=== PATIENT | female | born 1980 | race Hispanic/Latino ===

== ENCOUNTER → 2018-07-29 | Outpatient (CLI) | payer OTHER ==
--- NOTE | 2018-07-30 08:29 | US ---
EXAM DESCRIPTION: Breast,Bilateral: Ultrasound CLINICAL HISTORY: 37 yearsFemaleBREAST LUMP COMPARISON: Bilateral diagnostic digital breast tomosynthesis on the same visit. TECHNIQUE: Transcutaneous scanning of the bilateral breasts utilizing anders-scale and Doppler modes. Scanning performed by the clinical medical transcriptionist and Dr. Roberts. FINDINGS: Scanning at the right breast upper outer quadrant. Breast tissue is predominantly fibroglandular with heterogeneous fatty echotexture. No dominant solid mass or distinct cyst. No parenchymal edema or large calcifications. No overlying skin changes. Normal vascularity. Scanning of the left breast where patient feels a lump at the 2:00 position 5 cm from the nipple. Skin marker at this location. Predominantly fibroglandular tissues with minimal fatty echotexture. Close to the chest wall. No dominant solid mass or distinct cyst. No parenchymal edema or large calcifications. No overlying skin changes. Normal vascularity. Bilateral negative findings. IMPRESSION: 1. Bi-Rads Category 1: Negative. 2. Please refer to bilateral diagnostic digital breast tomosynthesis examination and report on this visit. The FINDINGS and the FOLLOW-UP plan were reviewed in person with the patient after the examination. Written communication explaining the IMPRESSION and FOLLOW-UP will be mailed to the patient and referring care provider. Electronically signed by: Nicholas Roberts MD 07/30/2018 8:26 AM [employer] [facility]
--- NOTE | 2018-07-30 20:40 | MAM ---
EXAM DESCRIPTION: 3D Diagnostic, Bilateral: Digital Mammography CLINICAL HISTORY: 37 yearsFemaleBILATERAL BREAST NODULES PAIN . Palpable nodule upper outer quadrant left breast. No personal or family history of breast cancer. Childbirth. Premenopausal. No HRT. Lifetime risk of developing breast cancer (Tyrer-Cuzick model) percentage is 8.0. COMPARISON: Baseline study at this facility. No prior reports available.. TECHNIQUE: Bilateral LM, MLO, and CC projection full-field images, digital mammographic tomosynthesis technique. Bilateral 2-D digital full-field MLO images. CAD not utilized. Skin marker placed over the region where patient palpates a mass. FINDINGS: The breast parenchymal density pattern is: Heterogeneously dense breast tissue, which may obscure small masses. No skin thickening or nipple retraction skin marker is seen in the posterior third of the upper outer quadrant of the left breast at the 2:00-3:00 position. No mammographic abnormality is seen. Focal asymmetry noted in the right breast upper inner quadrant approximately 2:00 position, 3 to 4 cm from the nipple. Not associated with microcalcifications. Ultrasound: Scanning at the right breast upper inner quadrant, 12:00 - 3:00 position. Breast tissue is predominantly fibroglandular with heterogeneous fatty echotexture. No dominant solid mass or distinct cyst. No parenchymal edema or large calcifications. No overlying skin changes. Normal vascularity. Scanning of the left breast where patient feels a lump at the 2:00 position 5 cm from the nipple. Skin marker at this location. Predominantly fibroglandular tissues with minimal fatty echotexture. Close to the chest wall. No dominant solid mass or distinct cyst. No parenchymal edema or large calcifications. No overlying skin changes. Normal vascularity. Bilateral negative findings. IMPRESSION: Benign exam. BIRAD CATEGORY: 2 BENIGN FINDINGS. RECOMMENDATIONS: FOLLOW UP: Begin routine digital bilateral mammographic screening, one year interval from July 2018. The FINDINGS and the FOLLOW-UP plan were reviewed in person with the patient after the examination. Written communication explaining the IMPRESSION and FOLLOW-UP will be mailed to the patient and referring care provider. According to the [employer], yearly mammograms are recommended starting at age 40 and continuing as long as a woman is in good health. Any breast change noted on a breast self-exam should be reported promptly to the patient's healthcare provider. Breast MRI is recommended for women with an approximately 20-25% or greater lifetime risk of breast cancer, including women with a strong family history of breast or ovarian cancer and women who have been treated for Hodgkin's disease. A negative mammographic report should not delay tissue diagnosis in patients with significant clinical history or physical findings. Extremely dense breast tissue limits the sensitivity of digital mammography. Electronically signed by: Nicholas Roberts MD 07/30/2018 8:37 PM [facility]
== END ==
LOC: US 13:30
PROVIDERS: ATTEND Family Medicine
DX: N63.10 Unspecified lump in the right breast, unspecified quadrant (principal); N63.20 Unspecified lump in the left breast, unspecified quadrant; N64.4 Mastodynia
CPT/HCPCS: 76641; 77066; G0279